=== PATIENT | male | born 1960 | race Two or more races ===

== ENCOUNTER → 2018-03-21 | Outpatient (CLI) | payer OTHER ==
[~2018-03-21] MED LIST: ZITHROMAX500 MG PO
== END | disposition home or self-care (01) ==
LOC: TOM 10:14
DX: J32.0 Chronic maxillary sinusitis (principal)

== ENCOUNTER 2018-06-11 16:42 | Outpatient (CLI) | payer OTHER ==
[~2018-06-11] VITALS: Ht 177.8 cm; Wt 74.8 kg
== END 2018-06-11 17:00 | disposition home or self-care (01) ==
LOC: OFIC 805 16:42
DX: J31.0 Chronic rhinitis (principal); J30.89 Other allergic rhinitis; J04.0 Acute laryngitis; G47.33 Obstructive sleep apnea (adult) (pediatric)

== ENCOUNTER 2018-07-18 07:47 | Outpatient (CLI) | payer OTHER ==
[~2018-07-18] VITALS: Ht 152.4 cm; Wt 74.8 kg
== END 2018-07-18 08:10 | disposition home or self-care (01) ==
LOC: OFIC 805 07:47
DX: G47.33 Obstructive sleep apnea (adult) (pediatric) (principal); J31.0 Chronic rhinitis; J04.0 Acute laryngitis

== ENCOUNTER 2018-07-30 11:26 | Outpatient (CLI) | payer OTHER ==
[~2018-07-30] VITALS: Ht 152.4 cm; Wt 74.8 kg
== END 2018-07-30 11:45 | disposition home or self-care (01) ==
LOC: OFIC 805 11:26
DX: H61.23 Impacted cerumen, bilateral (principal); M62.838 Other muscle spasm; H92.02 Otalgia, left ear

== ENCOUNTER 2018-10-07 08:44 | Outpatient (CLI) | payer OTHER | END 2018-10-07 09:10 | disposition home or self-care (01) | LOC: RAD 08:44 | DX: N28.1 Cyst of kidney, acquired (principal); M47.12 Other spondylosis with myelopathy, cervical region ==

== ENCOUNTER 2018-10-31 12:41 | Outpatient (CLI) | payer OTHER | END 2018-10-31 13:00 | disposition home or self-care (01) | LOC: NUCLEAR 12:41 | DX: M85.88 Other specified disorders of bone density and structure, other site (principal) ==

== ENCOUNTER 2019-01-01 08:16 | Outpatient (CLI) | payer OTHER | END 2019-01-01 08:18 | disposition home or self-care (01) | LOC: RX STUDY 08:16 | DX: K20.8 Other esophagitis (principal) ==

== ENCOUNTER 2019-04-24 11:11 | Outpatient (CLI) | payer OTHER | END 2019-04-24 11:13 | disposition home or self-care (01) | LOC: SONOGRAMA 11:11 | DX: N28.1 Cyst of kidney, acquired (principal) ==

== ENCOUNTER → 2019-09-19 | Outpatient (CLI) | payer OTHER | END | disposition home or self-care (01) | LOC: RAD 09:44 | DX: M54.89 Other dorsalgia (principal); N20.0 Calculus of kidney ==

== ENCOUNTER → 2020-04-21 | Outpatient (CLI) | payer OTHER | END | disposition home or self-care (01) | LOC: SONOGRAMA 09:19 | DX: E03.8 Other specified hypothyroidism (principal); M15.0 Primary generalized (osteo)arthritis; M25.462 Effusion, left knee; E04.2 Nontoxic multinodular goiter ==

== ENCOUNTER 2020-04-23 11:09 | Outpatient (CLI) | payer OTHER | END 2020-04-23 11:17 | disposition home or self-care (01) | LOC: SONOGRAMA 11:09 → MAMO-SONO 11:15 → SONOGRAMA 11:17 | PROVIDERS: ATTEND Urology | DX: R31.21 Asymptomatic microscopic hematuria (principal); N28.1 Cyst of kidney, acquired ==

== ENCOUNTER 2021-04-25 10:46 | Outpatient (CLI) | payer OTHER | END 2021-04-25 10:52 | disposition home or self-care (01) | LOC: SONOGRAMA 10:46 | PROVIDERS: ATTEND Urology | DX: N28.1 Cyst of kidney, acquired (principal); R31.21 Asymptomatic microscopic hematuria ==

== ENCOUNTER 2021-06-22 09:22 | Outpatient (CLI) | payer OTHER | END 2021-06-22 09:32 | disposition home or self-care (01) | LOC: TOM 09:22 | DX: Q61.01 Congenital single renal cyst (principal); R10.84 Generalized abdominal pain; K42.9 Umbilical hernia without obstruction or gangrene ==

== ENCOUNTER 2021-07-14 05:49 | Day surgery (SDC) | payer OTHER ==
[~2021-07-14 05:49] MED LIST changes: +ATORVASTATIN CA10 MG
[2021-07-14] MEDS ORDERED: TYLENOL ARTHRI650 MG PO (07:23)
[2021-07-14] MEDS ORDERED: MIRALAX17 GM PO (07:23)
[2021-07-14] MEDS ORDERED: ULTRAM50 MG PO (07:23)
== END 2021-07-14 13:45 | disposition home or self-care (01) ==
LOC: CIR.AMB 05:49
PROVIDERS: ATTEND Surgery
DX: K43.6 Other and unspecified ventral hernia with obstruction, without gangrene (principal); Z20.822 Contact with and (suspected) exposure to COVID-19

== ENCOUNTER 2021-10-05 08:46 | Outpatient (CLI) | payer OTHER ==
[~2021-10-05 08:46] MED LIST changes: +MIRALAX17 GM PO; +TYLENOL ARTHRI650 MG PO; +ULTRAM50 MG PO
== END 2021-10-05 08:47 | disposition home or self-care (01) ==
LOC: SONOGRAMA 08:46
PROVIDERS: ATTEND Urology
DX: N28.1 Cyst of kidney, acquired (principal); R31.21 Asymptomatic microscopic hematuria

== ENCOUNTER 2021-11-09 08:12 | Outpatient (CLI) | payer OTHER | END 2021-11-09 08:14 | disposition home or self-care (01) | LOC: TOM 08:12 | PROVIDERS: ATTEND Surgery | DX: R10.9 Unspecified abdominal pain (principal) ==

== ENCOUNTER 2022-02-14 09:34 | Outpatient (CLI) | payer OTHER | END 2022-02-14 09:44 | disposition home or self-care (01) | LOC: PPH VACUNA 09:34 | PROVIDERS: ATTEND Emergency Medicine Pediatric Emergency Medicine | DX: Z23 Encounter for immunization (principal) ==

== ENCOUNTER 2022-02-21 09:22 | Outpatient (CLI) | payer OTHER | END 2022-02-21 09:35 | disposition home or self-care (01) | LOC: SONOGRAMA 09:22 | PROVIDERS: ATTEND Otolaryngology | DX: R22.1 Localized swelling, mass and lump, neck (principal) ==

== ENCOUNTER 2022-09-20 09:34 | Outpatient (CLI) | payer OTHER | END 2022-09-20 09:37 | disposition home or self-care (01) | LOC: SONOGRAMA 09:34 | PROVIDERS: ATTEND Urology | DX: R31.21 Asymptomatic microscopic hematuria (principal); N28.1 Cyst of kidney, acquired; R33.9 Retention of urine, unspecified ==

== ENCOUNTER 2022-10-31 13:18 | Outpatient (CLI) | payer OTHER | END 2022-10-31 13:26 | disposition home or self-care (01) | LOC: RAD 13:18 | PROVIDERS: ATTEND General Practice | DX: M54.9 Dorsalgia, unspecified (principal); M25.562 Pain in left knee ==

== ENCOUNTER 2022-11-07 09:19 | Outpatient (CLI) | payer OTHER | END 2022-11-07 09:27 | disposition home or self-care (01) | LOC: SONOGRAMA 09:19 | PROVIDERS: ATTEND General Practice | DX: E03.9 Hypothyroidism, unspecified (principal) ==

== ENCOUNTER 2023-01-16 14:03 | Outpatient (CLI) | payer OTHER | END 2023-01-16 14:12 | disposition home or self-care (01) | LOC: RAD 14:03 | PROVIDERS: ATTEND Physical Medicine & Rehabilitation | DX: M17.11 Unilateral primary osteoarthritis, right knee (principal) ==

== ENCOUNTER 2023-09-05 10:14 | Outpatient (CLI) | payer OTHER | END 2023-09-05 10:19 | disposition home or self-care (01) | LOC: SONOGRAMA 10:14 | PROVIDERS: ATTEND Urology | DX: N20.0 Calculus of kidney (principal) ==

== ENCOUNTER 2025-07-21 12:24 | Outpatient (CLI) | payer OTHER | END 2025-07-21 12:26 | disposition home or self-care (01) | LOC: SONOGRAMA 12:24 | PROVIDERS: ATTEND Urology | DX: N40.0 Benign prostatic hyperplasia without lower urinary tract symptoms (principal); R31.1 Benign essential microscopic hematuria; N20.0 Calculus of kidney ==